=== PATIENT | male | born 1980 | race American Indian/Alaskan Native ===

== ENCOUNTER 2019-10-22 11:05 | Emergency (ER) | payer SELFPAY | END 2019-10-22 17:36 | disposition left against medical advice (07) | LOC: ED 11:05 | DX: M54.9 Dorsalgia, unspecified (principal); Z53.21 Procedure and treatment not carried out due to patient leaving prior to being seen by health care provider ==

== ENCOUNTER 2019-10-23 08:20 | Emergency (ER) | payer OTHER ==
[2019-10-23] MEDS ORDERED: IBUPROFEN 800 MG TAB PO ONE (13:12)
[2019-10-23] MEDS ORDERED: BUTALB/ACETAMINOPHEN/CAFFEINE TAB PO ONE (13:13)
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
[2019-10-23 14:46] VITALS: BP 149/78
== END 2019-10-23 14:45 | disposition home or self-care (01) ==
LOC: ED 08:20
DX: S16.1XXA Strain of muscle, fascia and tendon at neck level, initial encounter (principal); S39.012A Strain of muscle, fascia and tendon of lower back, initial encounter; S70.01XA Contusion of right hip, initial encounter; R51 Headache; V89.2XXA Person injured in unspecified motor-vehicle accident, traffic, initial encounter; Y93.89 Activity, other specified; Y92.410 Unspecified street and highway as the place of occurrence of the external cause; Y99.8 Other external cause status